=== PATIENT | female | born 1945 | race Caucasian/White ===

== ENCOUNTER → 2017-07-24 | Outpatient (CLI) | payer MEDICARE, OTHER ==
[~2017-07-24] MED LIST: ASPIRIN; FENOFIBRATE; OMEPRAZOLE; TOPROL XL
--- NOTE | 2017-07-24 12:37 | Diagnostic Imaging Report ---
PROCEDURE:L-SPINE AP AND LAT WITH FLEX AND EXT. COMPARISON:None. INDICATIONS:LOWER BACK PAIN RADIATING TO RIGHT SIDE/SCIATICA FINDINGS: There are 5 lumbar-type vertebral bodies. Severe L4-L5 and L5-S1 Facet arthropathy with Grade 1 retrolisthesis of L5 in relation to L4. Vertebral body heights are maintained. There are no fractures, lytic or blastic lesions. The disc-space heights are well-maintained. No instability on flexion/extension views. CONCLUSION: No acute lumbar spine abnormality. Severe L4-L5 and L5-S1 Facet arthropathy with Grade 1 retrolisthesis of L5 in relation to L4. Dictated by: Rene Matthews M.D. on 07/24/2017 at 12:38 Electronically approved by: Rene Matthews M.D. on 07/24/2017 at 12:38
== END ==
LOC: RAD 09:56
PROVIDERS: ATTEND Internal Medicine
DX: M54.31 Sciatica, right side (principal)
CPT/HCPCS: 72110

== ENCOUNTER → 2020-07-02 | Day surgery (SDC) | payer MEDICARE, OTHER ==
[2020-06-29 09:29] LABS: BASOPHILS % 0.6 % (0.0-1.0); EOSINOPHILS # (AUTO) 0.2 (0.0-0.4); EOSINOPHILS % 4.1 % (0.0-6.0); HEMATOCRIT 44.7 % (34.2-44.1); LYMPHOCYTES # (AUTO) 1.9 (1.0-3.2); LYMPHOCYTES % 36.9 % (18.0-39.1); MEAN CORPUSCULAR HEMOGLOBIN 26.4 pg (28-32); MEAN CORPUSCULAR HGB CONC 31.3 g/dL (31-35); MEAN CORPUSCULAR VOLUME 84.3 fL (81-99); MONOCYTES # (AUTO) 0.7 (0.2-0.8); NEUTROPHILS # (AUTO) 2.3 (2.1-6.9); PLATELET COUNT 270 x10e3/uL (140-360); RED CELL DISTRIBUTION WIDTH 14.1 % (11.7-14.4)
[~2020-07-02] MED LIST changes: +BENICAR20 MG PO; +CALCIUM ACETAT667 MG PO; +EPHEDRINE SULFATE INJ 50 MG/ML VIAL ONE; +FLAXSEED OIL1000 MG; +GLUCAGON FOR INJ 1 MG VIAL ONE; +HYDRALAZINE HC100 MG PO; +KETAMINE HCL INJ 50 MG/ML 10 ML VIAL ONE; +LIDOCAINE HCL 2% LOCAL INJ 5 ML SDV VIAL INJ ONE; +LORATADINE10 MG PO; +MIDAZOLAM HCL 2 MG/2 ML VIAL ONE; +MIRALAX17 GM PO; +OMEGA 3 FISH O1 EACH PO; +PANTOPRAZOLE 40 MG 10ML VIAL ONE; +PROBIOTIC & AC1 EACH PO; +PROPOFOL IV EMULSION 10 MG/ML 20 ML VIAL ONE; +RESTASIS1 EACH; +TURMERIC538 MG; +VITAMIN C1000 MG PO; +VITAMIN D310 MCG; +VITAMIN E1000 UNI1; +ZOLOFT50 MG PO
[2020-07-02 10:40] VITALS: BP 116/78
== END | disposition home or self-care (01) ==
LOC: OR 05:56
PROVIDERS: ATTEND Internal Medicine Gastroenterology
DX: Z12.11 Encounter for screening for malignant neoplasm of colon (principal); D12.0 Benign neoplasm of cecum; D12.2 Benign neoplasm of ascending colon; D12.3 Benign neoplasm of transverse colon; D12.4 Benign neoplasm of descending colon; K31.7 Polyp of stomach and duodenum; K29.70 Gastritis, unspecified, without bleeding; K20.90 Esophagitis, unspecified without bleeding; K21.9 Gastro-esophageal reflux disease without esophagitis; K44.9 Diaphragmatic hernia without obstruction or gangrene; G47.33 Obstructive sleep apnea (adult) (pediatric); I10 Essential (primary) hypertension; E78.5 Hyperlipidemia, unspecified; I38 Endocarditis, valve unspecified; F41.9 Anxiety disorder, unspecified; Z01.810 Encounter for preprocedural cardiovascular examination; Z01.812 Encounter for preprocedural laboratory examination; Z20.822 Contact with and (suspected) exposure to COVID-19; Z79.82 Long term (current) use of aspirin; Z68.31 Body mass index [BMI] 31.0-31.9, adult
CPT/HCPCS: 36415; 43239; 45380; 45385; 85025; 88305; 88312; 93005; C9113; J1610; J2001; J2250; J2704; U0002; 45378; 45384

== ENCOUNTER → 2021-08-06 | Outpatient (CLI) | payer MEDICARE, OTHER ==
[~2021-08-06] MED LIST changes: -EPHEDRINE SULFATE INJ 50 MG/ML VIAL ONE; -GLUCAGON FOR INJ 1 MG VIAL ONE; -KETAMINE HCL INJ 50 MG/ML 10 ML VIAL ONE; -LIDOCAINE HCL 2% LOCAL INJ 5 ML SDV VIAL INJ ONE; -MIDAZOLAM HCL 2 MG/2 ML VIAL ONE; -PANTOPRAZOLE 40 MG 10ML VIAL ONE; -PROPOFOL IV EMULSION 10 MG/ML 20 ML VIAL ONE
== END ==
LOC: RAD 11:41
PROVIDERS: ATTEND Internal Medicine
DX: M79.604 Pain in right leg (principal)
CPT/HCPCS: 93971

== ENCOUNTER 2024-06-16 06:14 | Inpatient (IN) | payer MEDICARE, OTHER ==
[~2024-06-16] VITALS: Ht 157.5 cm; Wt 72.6 kg
[~2024-06-16 06:14] MED LIST changes: -ASPIRIN; +ASPIRIN PO; -FENOFIBRATE; +FENOFIBRATE PO; -FLAXSEED OIL1000 MG; +FLAXSEED OIL1000 MG PO; -TURMERIC538 MG; +TURMERIC538 MG PO; -VITAMIN E1000 UNI1; +VITAMIN E1000 UNI1 PO
[2024-06-16] MEDS: SODIUM CHLORIDE 0.9% 1000ML 1,000 ML IV STA ×2 (06:57)
[2024-06-16] MEDS: SODIUM CHLORIDE 0.9% 500ML 500 ML IV ONE (06:58)
[2024-06-16] MEDS: ACETAMINOPHEN 325 MG TAB PO ONE (06:58)
[2024-06-16 07:03] LABS: BASOPHILS % 0.2 % (0.0-1.0); EOSINOPHILS % 0.1 % (0.0-6.0); HEMATOCRIT 49.2 % (34.2-44.1); HEMOGLOBIN 16.8 g/dL (12.0-16.0); LYMPHOCYTES # (AUTO) 1.3 (1.0-3.2); LYMPHOCYTES % 12.7 % (18.0-39.1); MEAN CORPUSCULAR HEMOGLOBIN 29.7 pg (28-32); MEAN CORPUSCULAR HGB CONC 34.1 g/dL (31-35); MEAN CORPUSCULAR VOLUME 87.1 fL (81-99); MONOCYTES # (AUTO) 0.7 (0.2-0.8); MONOCYTES % 7.1 % (4.4-11.3); NEUTROPHILS % 79.4 % (38.7-80.0); PLATELET COUNT 264 x10e3/uL (140-360); RED BLOOD COUNT 5.65 x10e6/uL (3.6-5.1); RED CELL DISTRIBUTION WIDTH 14.1 % (11.7-14.4); WHITE BLOOD COUNT 10.07 x10e3/uL (4.8-10.8)
[2024-06-16 07:13] LABS: PROTHROMBIN TIME 13.8 seconds (11.9-14.5)
[2024-06-16 07:14] LABS: PARTIAL THROMBOPLASTIN TIME 32.1 seconds (23.8-35.5)
[2024-06-16 07:20] LABS: ALBUMIN 3.7 g/dL (3.5-5.0); ALBUMIN/GLOBULIN RATIO 1.2 (0.8-2.0); ANION GAP 13.7 mmol/L (8-16); BILIRUBIN,TOTAL 0.8 mg/dL (0.2-1.2); CALCIUM 9.4 mg/dL (8.4-10.2); CREATININE, SERUM 0.98 mg/dL (0.57-1.11); POTASSIUM 3.7 mmol/L (3.5-5.1); TOTAL PROTEIN 6.7 g/dL (6.5-8.1)
[2024-06-16] MEDS ORDERED: ONDANSETRON HCL INJ 2MG/ML 2ML 2 MG/ML VIAL IV PRN ×2 (07:45→09:00)
[2024-06-16] MEDS: Vancomycin IV 1 GM in SODIUM CHLORIDE 0.9% 250ML 250 ML IV ONE (08:16)
[2024-06-16 08:30] VITALS: PULSE 81; RESP 18; TEMP 98.9
[2024-06-16] MEDS ORDERED: HYDRALAZINE HCL 20 MG/ML VIAL IV PRN (09:00)
[2024-06-16 09:05] VITALS: BP 118/79; PULSE 72; RESP 19; TEMP 98.1; O2SAT 96
[2024-06-16 12:00] VITALS: BP 116/88; PULSE 78; RESP 18; TEMP 98.1; O2SAT 97
[2024-06-16] MEDS ORDERED: SERTRALINE HCL50 MG PO (14:45)
[2024-06-16] MEDS ORDERED: METOPROLOL SUCC25 MG PO (14:45)
[2024-06-16] MEDS ORDERED: OMEPRAZOLE40 MG PO (14:45)
[2024-06-16] MEDS ORDERED: VITAMIN D350 MCG PO (14:45)
[2024-06-16] MEDS ORDERED: APPLE CIDER VI250 MG PO (14:45)
[2024-06-16] MEDS ORDERED: BIOTIN1 MG PO (14:45)
[2024-06-16] MEDS ORDERED: RESTASIS1 EACH OU (15:17)
[2024-06-16] MEDS ORDERED: BENEFIBER1 EAC1 PO (15:17)
[2024-06-16 20:00] VITALS: BP 128/80; PULSE 95; RESP 20; TEMP 97.7; O2SAT 95
[2024-06-16] MEDS: Vancomycin IV 1 GM in SODIUM CHLORIDE 0.9% 250ML 250 ML IV SCH (20:47)
[2024-06-16] MEDS: LORATADINE 10 MG TAB PO SCH (20:50)
[2024-06-16] MEDS: ACETAMINOPHEN 325 MG TAB PO PRN (20:52)
[2024-06-17] VITALS: BP 121/69; PULSE 83; RESP 20; TEMP 98.7; O2SAT 100
[2024-06-17 04:00] VITALS: BP 103/61; PULSE 56; RESP 18; TEMP 97.6; O2SAT 100
[2024-06-17 05:37] LABS: BASOPHILS % 0.1 % (0.0-1.0); EOSINOPHILS # (AUTO) 0.1 (0.0-0.4); EOSINOPHILS % 0.8 % (0.0-6.0); HEMATOCRIT 43.1 % (34.2-44.1); HEMOGLOBIN 14.2 g/dL (12.0-16.0); LYMPHOCYTES # (AUTO) 1.3 (1.0-3.2); LYMPHOCYTES % 18.7 % (18.0-39.1); MEAN CORPUSCULAR HEMOGLOBIN 29.5 pg (28-32); MEAN CORPUSCULAR HGB CONC 32.9 g/dL (31-35); MEAN CORPUSCULAR VOLUME 89.4 fL (81-99); MONOCYTES # (AUTO) 0.6 (0.2-0.8); MONOCYTES % 7.8 % (4.4-11.3); NEUTROPHILS # (AUTO) 5.2 (2.1-6.9); NEUTROPHILS % 72.3 % (38.7-80.0); PLATELET COUNT 203 x10e3/uL (140-360); RED BLOOD COUNT 4.82 x10e6/uL (3.6-5.1); RED CELL DISTRIBUTION WIDTH 14.2 % (11.7-14.4); WHITE BLOOD COUNT 7.15 x10e3/uL (4.8-10.8)
[2024-06-17 06:20] LABS: ALBUMIN 2.7 g/dL (3.5-5.0); ANION GAP 9.7 mmol/L (8-16); BILIRUBIN,TOTAL 0.6 mg/dL (0.2-1.2); CALCIUM 8.8 mg/dL (8.4-10.2); CREATININE, SERUM 0.86 mg/dL (0.57-1.11); POTASSIUM 3.7 mmol/L (3.5-5.1); TOTAL PROTEIN 5.5 g/dL (6.5-8.1)
[2024-06-17 08:00] VITALS: BP 103/61; PULSE 56; RESP 18; TEMP 97.6; O2SAT 100
[2024-06-17] MEDS ORDERED: PANTOPRAZOLE SOD 40 MG TABEC PO SCH (09:00)
[2024-06-17] MEDS: OMEPRAZOLE 20 MG CAP PO SCH (09:29)
[2024-06-17] MEDS: SERTRALINE HCL 50 MG TAB PO SCH (10:32)
[2024-06-17] MEDS: METOPROLOL SUCCINATE 25 MG TAB XL PO SCH (10:32)
[2024-06-17 17:16] VITALS: BP 139/91; PULSE 58; RESP 19; TEMP 98; O2SAT 96
[2024-06-17] MEDS: OLMESARTAN 20 MG TAB PO SCH (17:41)
[2024-06-18] VITALS (7 sets, daily range): BP systolic 117–138; BP diastolic 79–99; PULSE 58–80; RESP 17–18; TEMP 97.3–98; O2SAT 98–100
[2024-06-18 06:03] LABS: BASOPHILS % 0.2 % (0.0-1.0); EOSINOPHILS # (AUTO) 0.1 (0.0-0.4); EOSINOPHILS % 1.2 % (0.0-6.0); HEMATOCRIT 42.8 % (34.2-44.1); HEMOGLOBIN 14.3 g/dL (12.0-16.0); LYMPHOCYTES # (AUTO) 1.6 (1.0-3.2); LYMPHOCYTES % 28.1 % (18.0-39.1); MEAN CORPUSCULAR HEMOGLOBIN 29.5 pg (28-32); MEAN CORPUSCULAR HGB CONC 33.4 g/dL (31-35); MEAN CORPUSCULAR VOLUME 88.2 fL (81-99); MONOCYTES # (AUTO) 0.6 (0.2-0.8); MONOCYTES % 9.5 % (4.4-11.3); NEUTROPHILS # (AUTO) 3.5 (2.1-6.9); NEUTROPHILS % 60.7 % (38.7-80.0); PLATELET COUNT 238 x10e3/uL (140-360); RED BLOOD COUNT 4.85 x10e6/uL (3.6-5.1); RED CELL DISTRIBUTION WIDTH 14.3 % (11.7-14.4); WHITE BLOOD COUNT 5.76 x10e3/uL (4.8-10.8)
[2024-06-18 06:35] LABS: ALBUMIN 2.7 g/dL (3.5-5.0); ALBUMIN/GLOBULIN RATIO 0.9 (0.8-2.0); ANION GAP 12.1 mmol/L (8-16); BILIRUBIN,TOTAL 0.4 mg/dL (0.2-1.2); CALCIUM 8.8 mg/dL (8.4-10.2); CREATININE, SERUM 0.81 mg/dL (0.57-1.11); POTASSIUM 4.1 mmol/L (3.5-5.1); TOTAL PROTEIN 5.8 g/dL (6.5-8.1)
[2024-06-19] VITALS (8 sets, daily range): BP systolic 122–169; BP diastolic 68–89; PULSE 57–93; RESP 18; TEMP 96.7–97.8; O2SAT 96–100
[2024-06-19] MEDS: SODIUM CHLORIDE 0.9% 250ML 250 ML ONE
[2024-06-19 06:02] LABS: BASOPHILS % 0.5 % (0.0-1.0); EOSINOPHILS # (AUTO) 0.1 (0.0-0.4); HEMATOCRIT 44.5 % (34.2-44.1); HEMOGLOBIN 14.5 g/dL (12.0-16.0); LYMPHOCYTES # (AUTO) 1.4 (1.0-3.2); LYMPHOCYTES % 33.8 % (18.0-39.1); MEAN CORPUSCULAR HEMOGLOBIN 29.7 pg (28-32); MEAN CORPUSCULAR HGB CONC 32.6 g/dL (31-35); MONOCYTES # (AUTO) 0.4 (0.2-0.8); MONOCYTES % 9.5 % (4.4-11.3); NEUTROPHILS # (AUTO) 2.1 (2.1-6.9); NEUTROPHILS % 53.7 % (38.7-80.0); PLATELET COUNT 255 x10e3/uL (140-360); RED BLOOD COUNT 4.89 x10e6/uL (3.6-5.1); RED CELL DISTRIBUTION WIDTH 14.3 % (11.7-14.4); WHITE BLOOD COUNT 3.99 x10e3/uL (4.8-10.8)
[2024-06-19 06:21] LABS: ALBUMIN 2.7 g/dL (3.5-5.0); ALBUMIN/GLOBULIN RATIO 0.9 (0.8-2.0); ANION GAP 13.1 mmol/L (8-16); BILIRUBIN,TOTAL 0.3 mg/dL (0.2-1.2); CREATININE, SERUM 0.82 mg/dL (0.57-1.11); POTASSIUM 4.1 mmol/L (3.5-5.1); TOTAL PROTEIN 5.8 g/dL (6.5-8.1)
[2024-06-20] VITALS: BP 136/74; PULSE 58; RESP 19; TEMP 97.5; O2SAT 100
[2024-06-20] MEDS: SODIUM CHLORIDE 0.9% 250ML 250 ML ONE (00:18)
[2024-06-20 04:00] VITALS: BP 134/69; PULSE 51; RESP 17; TEMP 97.5; O2SAT 100
[2024-06-20 08:16] VITALS: BP 160/86; PULSE 54; RESP 17; TEMP 97.6; O2SAT 98
[2024-06-20 08:49] VITALS: BP 147/88; PULSE 90
== END 2024-06-20 14:10 | disposition home or self-care (01) | DRG 603 ==
LOC: ER 06:33 → ERHOLD 07:46 → MED/SURG2 08:54
PROVIDERS: ADMIT Internal Medicine; ATTEND Internal Medicine
DX: L03.114 Cellulitis of left upper limb (principal); Z99.81 Dependence on supplemental oxygen; D45 Polycythemia vera; S51.832A Puncture wound without foreign body of left forearm, initial encounter; E78.5 Hyperlipidemia, unspecified; D72.819 Decreased white blood cell count, unspecified; F32.A Depression, unspecified; I12.9 Hypertensive chronic kidney disease with stage 1 through stage 4 chronic kidney disease, or unspecified chronic kidney disease; N18.31 Chronic kidney disease, stage 3a; G47.33 Obstructive sleep apnea (adult) (pediatric); M32.9 Systemic lupus erythematosus, unspecified; K21.9 Gastro-esophageal reflux disease without esophagitis; F41.9 Anxiety disorder, unspecified; W55.01XA Bitten by cat, initial encounter; Z79.82 Long term (current) use of aspirin
CPT/HCPCS: 36415; 71045; 80053; 80202; 83605; 83735; 84484; 85025; 85610; 85730; 87040; 93005; 99252; 99284; J2405; J2543; J7030; J7040; J7050